=== PATIENT | male | born 1960 | race Two or more races ===

== ENCOUNTER 2021-12-26 17:07 | Emergency (ER) | payer OTHER ==
[~2021-12-26] VITALS: Ht 299.7 cm; Wt 105.7 kg
[2021-12-26] MEDS ORDERED: ATORVASTATIN CA10 MG PO (17:20)
[2021-12-26] MEDS ORDERED: PRILOSEC OTC20 MG PO (17:21)
[2021-12-26] MEDS ORDERED: CARDURA XL4 MG PO (17:21)
[2021-12-26] MEDS ORDERED: ECOTRIN81 MG PO (17:21)
== END 2021-12-26 21:35 | disposition home or self-care (01) ==
LOC: ER 17:07
DX: U07.1 COVID-19 (principal); R55 Syncope and collapse; Z88.2 Allergy status to sulfonamides